=== PATIENT | male | born 1995 | race African-American/Black ===

== ENCOUNTER 2020-07-23 11:06 | Emergency (ER) | payer SELFPAY ==
[2020-07-23] MEDS ORDERED: IPRATROPIUM BROM 0.5MG/2.5ML ONE (12:12)
[2020-07-23] MEDS ORDERED: LEVALBUTEROL 1.25 MG/3 ML NEB ONE (12:12)
[2020-07-23] MEDS ORDERED: METHYLPREDNISOLONE 125 MG INJ ONE (12:12)
--- NOTE | 2020-07-23 12:13 | RAD REPORT ---
EXAM DESCRIPTION: RAD - Chest Single View - 07/23/2020 12:08 pm CLINICAL HISTORY: COUGH Chest pain. COMPARISON: No comparisons FINDINGS: Portable technique limits examination quality. The lungs are grossly clear. The heart is normal in size. No displaced fractures. IMPRESSION: No acute intrathoracic process suspected.
[2020-07-23 12:28] LABS: Absolute Lymphocytes (CBC) 2.1 K/uL (0.7-4.9); Basophils % 1.3 % (0-1.3); Hematocrit 43.5 % (39.6-49.0); Lymphocytes % 30.1 % (15.3-44.8); MPV 8.5 fL (7.6-11.3); RBC Red Blood Cell Count 5.35 M/uL (4.33-5.43)
[2020-07-23 12:41] LABS: BUN Blood Urea Nitrogen 16 mg/dL (7-18); Bicarbonate 25 mmol/L (21-32); Glucose Level 87 mg/dL (74-106); Potassium 4.3 mmol/L (3.5-5.1); Sodium Level 140 mmol/L (136-145)
--- NOTE | 2020-07-23 12:44 | ER ---
Nurse's Notes [facility] Name: Yuri Mayo Age: 25 yrs Sex: Male : 1995 Arrival Date: 07/23/2020 Time: 11:13 Bed 14 Private MD: Diagnosis: Asthma;Mild persistent asthma with (acute) exacerbation Presentation: 07/23 11:32 Chief complaint: Patient states: "I've been having trouble breathing on and off for a aa5 month now". Pt also reports cough. Denies fever. 11:32 Coronavirus screen: cough unrelated to allergies, shortness of breath. Ebola Screen: aa5 Patient negative for fever greater than or equal to 101.5 degrees Fahrenheit, and additional compatible Ebola Virus Disease symptoms. Initial Sepsis Screen: Does the patient meet any 2 criteria? No. Patient's initial sepsis screen is negative. Does the patient have a suspected source of infection? No. Patient's initial sepsis screen is negative. Risk Assessment: Do you want to hurt yourself or someone else? Patient reports no desire to harm self or others. Onset of symptoms was July 23, 2020. 11:32 Acuity: RHINA 3 aa5 11:32 Method Of Arrival: Ambulatory aa5 Triage Assessment: 12:45 General: Behavior is calm. Respiratory: Onset: The symptoms/episode began/occurred at zb an unknown time. the patient has mild shortness of breath. Historical: - Allergies: 11:43 No Known Allergies; aa5 - PMHx: 11:43 None; aa5 - PSHx: 11:43 None; aa5 - Immunization history:: Adult Immunizations unknown. - Social history:: Smoking status: Patient/guardian denies using tobacco, Patient uses street drugs, marijuana. - Family history:: not pertinent. - Hospitalizations: : No recent hospitalization is reported. Screenin:03 Abuse screen: Denies threats or abuse. Nutritional screening: No deficits noted. kg Tuberculosis screening: No symptoms or risk factors identified. Fall Risk None identified. Assessment: 12:00 General: Appears in no apparent distress. Pain: Denies pain. Respiratory: Reports kg shortness of breath cough that is Airway is patent Respiratory pattern is regular, Sputum is thin, clear Breath sounds with wheezes bilaterally. 12:01 Neuro: No deficits noted. Oriented to person, place, time, situation. Cardiovascular: kg No deficits noted. Respiratory: Respiratory effort is even, labored. 12:10 Reassessment: patient denies covid or flu swab MD notified. Reassessment: Patient zb appears in no apparent distress at this time. Patient and/or family updated on plan of care and expected duration. Pain level reassessed. Patient is alert, oriented x 3, equal unlabored respirations, skin warm/dry/pink. Patient currently receive neb tx. 12:40 Reassessment: ECP at bedside to discuss care. zb 12:45 Cardiovascular: Rhythm is regular. zb 12:52 Reassessment: d/c instructions received. pt ambulated at hallway. zb Vital Signs: 11:32 BP 129 / 85; Pulse 76; Resp 16 S; Temp 98.2(O); Pulse Ox 98% on R/A; aa5 12:44 BP 113 / 65; Pulse 69; Resp 16; Pulse Ox 97% on R/A; zb ED Course: 11:13 Patient arrived in ED. am2 11:32 Arm band placed on Patient placed in an exam room, on a stretcher. aa5 11:33 Jason Zamora MD is Attending Physician. rn 11:43 Triage completed. aa5 11:49 Diane Bedoya is Primary Nurse. kg 11:59 Basic Metabolic Panel Sent. kg 11:59 CBC with Automated Diff Sent. kg 11:59 Procalcitonin Sent. kg 11:59 Basic Metabolic Panel Sent. kg 11:59 CBC with Diff Sent. kg 12:00 Inserted saline lock: 20 gauge in right antecubital area, using aseptic technique. kg 12:08 XRAY Chest (1 view) In Process Unspecified. EDMS 12:27 Patient has correct armband on for positive identification. Bed in low position. Call zb light in reach. Side rails up X 1. Pulse ox on. NIBP on. Door closed. Noise minimized. 12:45 No provider procedures requiring assistance completed. IV discontinued, intact, zb bleeding controlled, No redness/swelling at site. Pressure dressing applied. Administered Medications: 12:09 Drug: SOLU-Medrol (methylPrednisoLONE) 125 mg Route: IVP; Site: right antecubital; ca1 12:46 Follow up: Response: No adverse reaction; Marked relief of symptoms zb 12:10 Drug: Xopenex (levalbuterol) (3) 1.25 mg Route: Inhalation; ca1 12:46 Follow up: Response: No adverse reaction; Marked relief of symptoms zb 12:10 Drug: AtroVENT (ipratropium) Aerosol 0.5 mg Route: Inhalation; ca1 12:46 Follow up: Response: No adverse reaction; Marked relief of symptoms zb Outcome: 12:43 Discharge ordered by . rn 12:45 Discharged to home ambulatory. zb 12:45 Condition: stable 12:52 Discharge instructions given to patient, Instructed on discharge instructions, follow zb up and referral plans. medication usage, Demonstrated understanding of instructions, follow-up care, medications, Prescriptions given X 2. 12:52 Patient left the ED. zb Signatures: Dispatcher [employer] EDMS Jason Zamora MD MD rn Calderon, Audri RN RN aa5 Suri Guardado am2 Neelam Dickson RN RN ca1 Brown, Zipporah, RN RN zDiane Hair kg
--- NOTE | 2020-07-23 12:44 | EDPHYS ---
Physician Documentation [facility] Name: Yuri Mayo Age: 25 yrs Sex: Male : 1995 Arrival Date: 07/23/2020 Time: 11:13 Bed 14 Private MD: ED Physician Jason Zamora HPI: 07/23 11:46 This 25 yrs old Black Male presents to ER via Ambulatory with complaints of Breathing rn Difficulty, Asthma Exacerbation. 11:46 The patient has shortness of breath at rest, with light activity. Onset: The rn symptoms/episode began/occurred 1 month(s) ago. Duration: The symptoms are intermittent. The patient's shortness of breath is aggravated by coughing, exertion, light activity, is alleviated by nothing. Associated signs and symptoms: Pertinent positives: non-productive cough, Pertinent negatives: fever, hemoptysis. Severity of symptoms: At their worst the symptoms were moderate in the emergency department the symptoms are unchanged. The patient has experienced similar episodes in the past. The patient has not recently seen a physician. Reports hx of asthma, doesn't use his inhaler, + smoker, + 1 month of dry cough and sob. No fever. No trauma. No hemoptysis. No hx of dvt/pe. . Historical: - Allergies: 11:43 No Known Allergies; aa5 - PMHx: 11:43 None; aa5 - PSHx: 11:43 None; aa5 - Immunization history:: Adult Immunizations unknown. - Social history:: Smoking status: Patient/guardian denies using tobacco, Patient uses street drugs, marijuana. - Family history:: not pertinent. - Hospitalizations: : No recent hospitalization is reported. ROS: 11:46 Constitutional: Negative for fever, chills, and weight loss, Eyes: Negative for injury, rn pain, redness, and discharge, ENT: Negative for injury, pain, and discharge, Neck: Negative for injury, pain, and swelling, Cardiovascular: Negative for chest pain, palpitations, and edema, Respiratory: Negative for pleuritic chest pain, + sob and cough Abdomen/GI: Negative for abdominal pain, nausea, vomiting, diarrhea, and constipation, MS/Extremity: Negative for injury and deformity, Skin: Negative for injury, rash, and discoloration, Neuro: Negative for headache, weakness, numbness, tingling, and seizure. Exam: 11:46 Constitutional: This is a well developed, well nourished patient who is awake, alert, rn and in no acute distress. + mild tachypnea Head/Face: Normocephalic, atraumatic. ENT: MMM, no stridor Cardiovascular: Regular rate and rhythm. No pulse deficits. Respiratory: + mild tachypnea, + bilateral wheezing in all lung ga, R>L Abdomen/GI: soft, non-tender Skin: Warm, dry MS/ Extremity: Pulses equal, no cyanosis. Neuro: Awake and alert, GCS 15, oriented to person, place, time, and situation. Cranial nerves II-XII grossly intact. Motor strength 5/5 in all extremities. Sensory grossly intact. Cerebellar exam normal. Normal gait. Vital Signs: 11:32 BP 129 / 85; Pulse 76; Resp 16 S; Temp 98.2(O); Pulse Ox 98% on R/A; aa5 12:44 BP 113 / 65; Pulse 69; Resp 16; Pulse Ox 97% on R/A; zb MDM: 11:33 Patient medically screened. rn 12:42 Differential diagnosis: asthma, pneumonia, Pneumothorax reactive airway disease. Data rn reviewed: vital signs, nurses notes, radiologic studies, plain films, and as a result, I will discharge patient. Counseling: I had a detailed discussion with the patient and/or guardian regarding: the historical points, exam findings, and any diagnostic results supporting the discharge/admit diagnosis, radiology results, the need for outpatient follow up, to return to the emergency department if symptoms worsen or persist or if there are any questions or concerns that arise at home. Response to treatment: the patient's symptoms have markedly improved after treatment, and as a result, I will discharge patient. Special discussion: I discussed with the patient/guardian in detail that at this point there is no indication for admission to the hospital. It is understood, however, that if the symptoms persist or worsen the patient needs to return immediately for re-evaluation. Special discussion: Based on the history and exam findings, there is no indication for further emergent testing or inpatient evaluation. I discussed with the patient/guardian the need to see the center machine operator for further evaluation of the symptoms. ED course: Pt refused covid swab, no oxygen requirement, cxr clear, recommend smoking cessation and steroids/inhaler with pulmonology f/u.. 07/23 11:44 Order name: CBC with Diff rn 07/23 11:44 Order name: Basic Metabolic Panel rn 07/23 11:44 Order name: Procalcitonin rn 07/23 11:45 Order name: CBC with Automated Diff; Complete Time: 12:35 EDMS 07/23 11:44 Order name: XRAY Chest (1 view); Complete Time: 12:17 rn 07/23 11:44 Order name: IV Start; Complete Time: 12:00 rn 07/23 11:45 Order name: Basic Metabolic Panel EDMS Administered Medications: 12:09 Drug: SOLU-Medrol (methylPrednisoLONE) 125 mg Route: IVP; Site: right antecubital; ca1 12:46 Follow up: Response: No adverse reaction; Marked relief of symptoms zb 12:10 Drug: Xopenex (levalbuterol) (3) 1.25 mg Route: Inhalation; ca1 12:46 Follow up: Response: No adverse reaction; Marked relief of symptoms zb 12:10 Drug: AtroVENT (ipratropium) Aerosol 0.5 mg Route: Inhalation; ca1 12:46 Follow up: Response: No adverse reaction; Marked relief of symptoms zb Disposition: 07/23/20 12:43 Discharged to Home. Impression: Asthma, Mild persistent asthma with (acute) exacerbation. - Condition is Stable. - Discharge Instructions: Asthma, Acute Bronchospasm. - Prescriptions for Prednisone 20 mg Oral Tablet - take 3 tablet by ORAL route once daily for 5 days; 15 tablet. Albuterol Sulfate 90 mcg/actuation - inhale 1-2 puff by INHALATION route every 4-6 hours; 1 Inhaler. - Medication Reconciliation Form, Thank You Letter, Antibiotic Education, Prescription Opioid Use form. - Follow up: Private Physician; When: As needed; Reason: Recheck today's complaints, Re-evaluation by your physician. - Problem is an acute exacerbation. - Symptoms have improved. Signatures: Dispatcher [employer] EDMS Jason Zamora MD MD rn Calderon, Audri, RN RN aa5 Neelam Dickson RN RN ca1 Katty Chapa RN RN zb Corrections: (The following items were deleted from the chart) 12:39 11:45 CORONAVIRUS+MR.LAB.BRZ ordered. EDAK EDAK 12:40 11:45 Influenza Screen (A \T\ B)+BA.LAB.BRZ ordered. [facility] 12:43 12:43 07/23/2020 12:43 Discharged to Home. Impression: Asthma. Condition is Stable. rn Forms are Medication Reconciliation Form, Thank You Letter, Antibiotic Education, Prescription Opioid Use. Follow up: Private Physician; When: As needed; Reason: Recheck today's complaints, Re-evaluation by your physician. Problem is an acute exacerbation. Symptoms have improved. rn 12:52 12:43 07/23/2020 12:43 Discharged to Home. Impression: Asthma; Mild persistent asthma zb with (acute) exacerbation. Condition is Stable. Forms are Medication Reconciliation Form, Thank You Letter, Antibiotic Education, Prescription Opioid Use. Follow up: Private Physician; When: As needed; Reason: Recheck today's complaints, Re-evaluation by your physician. Problem is an acute exacerbation. Symptoms have improved. rn
[2020-07-23 12:58] VITALS: TEMP 98.2
[2020-07-23 12:59] VITALS: BP 113/65; O2SAT 97
== END 2020-07-23 12:52 | disposition home or self-care (01) ==
LOC: ER 11:06
DX: J45.31 Mild persistent asthma with (acute) exacerbation (principal); Z53.29 Procedure and treatment not carried out because of patient's decision for other reasons
CPT/HCPCS: 36415; 71045; 80048; 84145; 85025; 96374; 99284; J2930